=== PATIENT | female | born 1980 | race Caucasian/White ===

== ENCOUNTER 2025-06-01 17:31 | Emergency (ER) | payer OTHER ==
[2025-06-01 18:10] VITALS: BP 126/76; PULSE 77; RESP 20; TEMP 98.6; BMI 24.1
[2025-06-01] MEDS ORDERED: AMOX TR/POT CLAV 875MG/125MG TABLETS (FP) ONE (18:13)
[2025-06-01] MEDS ORDERED: DIPHTH,PERTUSS(ACELL),TET 0.5 ML DISP.SYRIN IM ONE (18:13)
[2025-06-01] MEDS: DIPHTH,PERTUSS(ACELL),TET 0.5 ML DISP.SYRIN IM ONE (18:22)
[2025-06-01] MEDS: AMOX TR/POT CLAV 875MG/125MG TABLETS (FP) PO ONE (18:22)
== END 2025-06-01 18:31 | disposition home or self-care (01) ==
LOC: FER 17:31
PROC: 3E0234Z Introduction of Serum, Toxoid and Vaccine into Muscle, Percutaneous Approach (ICD-10-PCS; principal; 2025-06-01)
DX: S61.231A Puncture wound without foreign body of left index finger without damage to nail, initial encounter (principal); Z23 Encounter for immunization; W55.01XA Bitten by cat, initial encounter
CPT/HCPCS: 90715; 99284-25